=== PATIENT | male | born 1990 | race Caucasian/White ===

== ENCOUNTER 2022-10-05 12:28 | Emergency (ER) | payer OTHER ==
[~2022-10-05] VITALS: Ht 180.3 cm; Wt 90.7 kg
== END 2022-10-05 19:00 | disposition home or self-care (01) ==
LOC: ER 12:28
DX: R10.31 Right lower quadrant pain (principal); I88.0 Nonspecific mesenteric lymphadenitis; A08.8 Other specified intestinal infections; R11.0 Nausea; Z20.822 Contact with and (suspected) exposure to COVID-19

== ENCOUNTER 2024-03-21 17:32 | Emergency (ER) | payer OTHER ==
[~2024-03-21] VITALS: Ht 182.9 cm; Wt 90.7 kg
[2024-03-21] MEDS ORDERED: AZITHROMYCIN 500 MG TABLET PO ONE ×2 (19:00→19:23)
[2024-03-21] MEDS ORDERED: KETOROLAC TROMETHAMINE 60 MG VIAL IM ONE ×2 (19:00→19:23)
[2024-03-21] MEDS ORDERED: DEXAMETHASONE SODIUM PHOSPHATE 4 MG/ML VIAL IM ONE (19:00)
[2024-03-21] MEDS ORDERED: DEXAMETHASONE SODIUM PHOSPHATE 4 MG/ML VIAL ONE (19:23)
[2024-03-21 20:24] LABS: HEMATOCRIT 41.6 % (39.0-48.0); HEMOGLOBIN 14.7 g/dL (13-16.00); MEAN CELL VOLUME 83.6 fL (80.0-100.00); MEAN CORPUSCULAR HEMOGLOBIN 29.5 pg (27.00-32.0); MEAN CORPUSCULAR HGB CONC 35.2 g/dl (32.0-36.0); PLATELET COUNT 333 K/uL (150-450); RED BLOOD COUNT 4.98 M/uL (4.00-6.00)
[2024-03-21] MEDS ORDERED: TUSNEL LIQUID178 ML PO (21:09)
[2024-03-21] MEDS ORDERED: ZITHROMAX500 MG PO (21:09)
== END 2024-03-21 21:16 | disposition home or self-care (01) ==
LOC: ER 17:34
PROVIDERS: General Practice
DX: B34.9 Viral infection, unspecified (principal); R05.9 Cough, unspecified; Z20.822 Contact with and (suspected) exposure to COVID-19

== ENCOUNTER 2024-11-06 11:59 | Emergency (ER) | payer OTHER ==
[~2024-11-06] VITALS: Ht 180.3 cm; Wt 93.0 kg
[~2024-11-06 11:59] MED LIST: TUSNEL LIQUID178 ML PO; ZITHROMAX500 MG PO
[2024-11-06] MEDS ORDERED: KETOROLAC TROMETHAMINE 60 MG VIAL IM ONE ×2 (13:15→13:25)
[2024-11-06 15:28] LABS: COVID-19 AG POSITIVE (NEGATIVE)
[2024-11-06 15:29] LABS: INFLUENZA A AG NEGATIVE (NEGATIVE)
[2024-11-06 15:30] LABS: HEMOGLOBIN 16.9 g/dL (13-16.00); MEAN CELL VOLUME 85.4 fL (80.0-100.00); MEAN CORPUSCULAR HEMOGLOBIN 29.4 pg (27.00-32.0); MEAN CORPUSCULAR HGB CONC 34.4 g/dl (32.0-36.0); PLATELET COUNT 266 K/uL (150-450); RED BLOOD COUNT 5.74 M/uL (4.00-6.00); RED CELL DISTRIBUTION WIDTH 13.1 % (11.5-14.5)
== END 2024-11-06 16:18 | disposition home or self-care (01) ==
LOC: ER 11:59
PROVIDERS: General Practice
DX: U07.1 COVID-19 (principal)